=== PATIENT | female | born 1955 | race Caucasian/White ===

== ENCOUNTER 2018-03-25 17:13 | Emergency (ER) | payer OTHER, SELFPAY ==
[2018-03-25] MEDS ORDERED: Ondansetron HCl/PF 4 MG/2 ML Vial ONE (17:27)
[2018-03-25] MEDS ORDERED: Promethazine HCl 25 MG/ML VIAL ONE (17:50)
[2018-03-25 18:13] LABS: #Basophils 0.1 thou/uL (0.0-0.2); #Eosinphils 0.2 thou/uL (0.0-0.7); #Lymphocytes 3.3 thou/uL (1.20-3.40); #Monocytes 0.5 thou/uL (0.11-0.59); #Neutrophils 6.9 thou/uL (1.40-6.50); %Basophils 0.8 % (0.0-1.0); %Eosinophils 1.8 % (0.0-10.0); %Lymphocytes 30.2 % (21.0-51.0); %Monocytes 4.8 % (0.0-10.0); %Neutrophils 62.4 % (42.0-75.0); Mean Corpuscular Hemoglobin 27.7 pg (27.0-31.0); Mean Corpuscular Volume 86.6 fL (78.0-98.0); Mean Platelet Volume 7.3 fL (7.4-10.4); Platelet Count 376 thou/uL (130-400); RBC Distribution Width 13.3 % (11.5-14.5); Red Blood Cell (RBC) Count 4.32 mill/uL (4.20-5.40)
[2018-03-25 18:33] LABS: ALT (SGPT) 9 U/L (8-55); AST (SGOT) 14 U/L (5-34); Albumin 3.7 g/dL (3.4-4.8); Alkaline Phosphatase 109 U/L (40-150); Anion Gap 13 mmol/L (10-20); BUN (Urea Nitrogen) 12 mg/dL (9.8-20.1); Bilirubin, Total 0.5 mg/dL (0.2-1.2); Calc. Creatinine Clearance 0 mL/min (70-130); Carbon Dioxide 20 mmol/L (23-31); Chloride 104 mmol/L (98-107); Estimated GFR-MDRD 80; Globulin 3.4 g/dL (2.4-3.5); Glucose 193 mg/dL (80-115); Lipase 11 U/L (8-78); Potassium 3.2 mmol/L (3.5-5.1); Protein, Total 7.1 g/dL (6.0-8.3); Sodium 134 mmol/L (136-145)
[2018-03-25 18:37] LABS: CKMB 2.1 ng/mL (0-6.6); Troponin I Less than 0.010 ng/mL (< 0.028)
--- NOTE | 2018-03-25 18:55 | RAD ---
CHEST 1 VIEW: Date: 03/25/18 COMPARISON: None. HISTORY: Dizziness. Diaphoretic patient. FINDINGS: There appear to be multiple nodules occupying the right lung. Normal cardiac silhouette. No pleural e ffusion or pneumothorax. IMPRESSION: Multiple right lung nodules. Chest CT is recommended. POS: [facility]
--- NOTE | 2018-03-25 19:50 | CT ---
CT OF HEAD NONCONTRAST: 03/25/18 INDICATION: Vertigo. FINDINGS: There is mild parenchymal volume loss. Ventricular system is normal in size. There is no intracranial hemorrhage, mass effect or midline shift. The calvarium is intact. There is mild right mastoid effus ion. IMPRESSION: No acute intracranial hemorrhage or mass effect. POS: [facility]
--- NOTE | 2018-03-28 13:47 | EKG ---
Test Reason : Blood Pressure : / mmHG Vent. Rate : 074 BPM Atrial Rate : 074 BPM P-R Int : 134 ms QRS Dur : 086 ms QT Int : 428 ms P-R-T Axes : 045 002 024 degrees QTc Int : 475 ms Normal sinus rhythm Normal ECG Confirmed by DIRK KAUFMAN DO ([id number]), editor index RUBEN MCNALLY ([id number]) on 03/28/2018 1:46:53 PM Referred By: Confirmed By:DIRK KAUFMAN DO
== END 2018-03-25 20:24 | disposition home or self-care (01) ==
LOC: ERS 17:13
DX: H81.13 Benign paroxysmal vertigo, bilateral (principal); R91.8 Other nonspecific abnormal finding of lung field; E11.9 Type 2 diabetes mellitus without complications; F17.210 Nicotine dependence, cigarettes, uncomplicated
CPT/HCPCS: 36415; 36416; 70450; 71045; 80053; 82553; 83690; 84484; 85025; 93005; 96365; 96366; 96375; J2405; J2550